=== PATIENT | female | born 1980 ===

== ENCOUNTER 2021-12-15 00:03 | Emergency (ER) | payer SELFPAY ==
[2021-12-15 04:50] VITALS: BP 140/96
== END 2021-12-16 10:20 | disposition left against medical advice (07) ==
LOC: ED 00:03
DX: M54.50 Low back pain, unspecified (principal); R30.0 Dysuria; Z53.21 Procedure and treatment not carried out due to patient leaving prior to being seen by health care provider

== ENCOUNTER 2021-12-30 10:24 | Emergency (ER) | payer SELFPAY ==
[2021-12-30 12:24] VITALS: BP 122/85
== END 2021-12-30 18:00 | disposition left against medical advice (07) ==
LOC: ED 10:24
DX: R53.1 Weakness (principal); Z53.21 Procedure and treatment not carried out due to patient leaving prior to being seen by health care provider